=== PATIENT | male | born 1995 | race African-American/Black ===

== ENCOUNTER 2018-03-04 15:36 | Emergency (ER) | payer MEDICAID ==
[~2018-03-04] VITALS: Ht 167.6 cm; Wt 68.0 kg
[2018-03-04] MEDS ORDERED: IBUPROFEN 600MG TABLET PO ONE (18:45)
[2018-03-04] MEDS ORDERED: LIDOCAINE HCL 1% 20ML VIAL (Pyxis) INJ INFIL ONE (18:45)
[2018-03-04 20:57] VITALS: BP 122/78
== END 2018-03-04 21:00 | disposition home or self-care (01) ==
LOC: ER 17:06
DX: S60.131A Contusion of right middle finger with damage to nail, initial encounter (principal); F12.10 Cannabis abuse, uncomplicated; W22.8XXA Striking against or struck by other objects, initial encounter; Y93.89 Activity, other specified; Y92.89 Other specified places as the place of occurrence of the external cause; Y99.0 Civilian activity done for income or pay
CPT/HCPCS: 11740; 73140; 99284; J3490; X7700; Z7610

== ENCOUNTER 2018-03-06 04:17 | Emergency (ER) | payer MEDICAID ==
[~2018-03-06] VITALS: Ht 167.6 cm; Wt 68.0 kg
[2018-03-06 06:22] VITALS: BP 128/72
[2018-03-06] MEDS ORDERED: IBUPROFEN 600MG TABLET PO ONE (06:30)
== END 2018-03-06 06:44 | disposition home or self-care (01) ==
LOC: ER 06:01
DX: L73.9 Follicular disorder, unspecified (principal)
CPT/HCPCS: 99282